=== PATIENT | female | born 1940 | race American Indian/Alaskan Native ===

== ENCOUNTER 2016-12-03 13:26 | Outpatient (CLI) | payer MEDICARE ==
--- NOTE | 2016-12-03 14:27 | Mammography Report ---
BILATERAL MAMMOGRAM with CAD: HISTORY:Cancer screening. Comparison study is dated November 05, 2015. FINDINGS: The breasts are almost entirely fat (<25% glandular). No mass, distortion, suspicious calcification, or skin change is seen. IMPRESSION: Negative mammogram. There is no mammographic evidence of malignancy. RECOMMENDATION: Follow-up per ACS guidelines. BI-RADS CATEGORY: 1 = Negative ACR BI-RADS MAMMOGRAPHIC CODES: 0 = Needs additional imaging evaluation; 1 = Negative; 2 = Benign; 3 = Probably benign; 4 = Suspicious; 5 = Malignant; 6 = Known biopsy-proven malignancy COMMENT: 1. Dense breast tissue, i.e., adenosis, fibrocystic changes, etc., may obscure an underlying neoplasm. 2. Approximately 10% of cancers are not detected with mammography. 3. A negative mammography report should not delay biopsy if a clinically suspicious mass is present. COMMENT: Patient follow-up letters are generated in [employer].
== END 2016-12-03 13:27 | disposition home or self-care (01) ==
LOC: MAMMO 13:26
PROVIDERS: ATTEND Pediatrics
DX: Z12.31 Encounter for screening mammogram for malignant neoplasm of breast (principal)
CPT/HCPCS: 77067; G0202

== ENCOUNTER 2016-12-31 13:58 | Emergency (ER) | payer MEDICARE ==
[2016-12-31 14:45] LABS: Basophils % (Auto) 0.5 % (0.0-1.8); Eosinophils % (Auto) 1.4 % (0.0-4.3); Hematocrit 36.7 % (30.3-42.9); Hemoglobin 11.5 gm/dl (10.1-14.3); Mean Corpuscular HGB Conc 32 % (30-34); Mean Corpuscular Volume 82 fl (79-97); Platelet Count 175 K/mm3 (140-440); Red Blood Count 4.46 M/mm3 (3.65-5.03); White Blood Count 5.8 K/mm3 (4.5-11.0)
[2016-12-31 14:51] LABS: Mean Corpuscular Hemoglobin 26 pg (28-32)
[2016-12-31 15:02] LABS: Anion Gap 21 mmol/L; BUN/Creatinine Ratio 17.14; Blood Urea Nitrogen 12 mg/dL (7-17); Calcium 9.4 mg/dL (8.4-10.2); Carbon Dioxide 23 mmol/L (22-30); Chloride 97.5 mmol/L (98-107); Glucose 85 mg/dL (65-100); Potassium 4.2 mmol/L (3.6-5.0); Sodium 137 mmol/L (137-145)
[2016-12-31] MEDS ORDERED: CATAPRES PO ONE (23:26)
--- NOTE | 2016-12-31 23:32 | Emergency Department Report ---
HPI - General Chief Complaint: High BP Time Seen by Provider: 12/31/16 23:13 - HPI HPI: Room 8 The patient is a 76-year-old female presenting with a chief complaint of hypertension. The patient states she had an appointment with her urologist 2 days ago and was noted that her blood pressure was elevated. The patient was instructed to take her blood pressure medication as prescribed. The following day the patient went to a children's school for an award show in the school nurse checked her blood pressure again felt the patient be hypertensive with systolic blood pressure in the 200s. The patient once the [employer] today and checked her blood pressure had an automated machine was found to have a systolic blood pressure of 209. Patient admits to slight dizziness since yesterday. Patient denies headache nausea or vomiting. The patient stay she's been compliant with her blood pressure medication for the past 10 years Location: Head, see above Duration: 2 days Quality: Dizziness Severity: Slight Modifying factors: [see above] Context: [see above] Mode of transportation: Unknown ED Past Medical Hx - Past Medical History Previous Medical History?: Yes Hx Hypertension: Yes Additional medical history: HIGH CHOLESTEROL - Surgical History Past Surgical History?: Yes Additional Surgical History: CAROTID ARTERY SURGERY. Right knee replacement - Family History Family history: no significant - Social History Smoking Status: Former Smoker (none 5 years) Substance Use Type: None - Medications Home Medications: Home Medications Medication Instructions Recorded Confirmed Last Taken Type Alendronate Sodium [Alendronate 70 mg PO QWEEK 04/10/15 04/10/15 Unknown History Sodium] Folic Acid [Folic Acid] 1 tab PO DAILY 04/10/15 04/10/15 Unknown History Lisinopril/Hydrochlorothiazide 1 tab PO DAILY 04/10/15 04/10/15 Unknown History [Lisinopril-Hctz 20-12.5 mg Tab] Prednisone [Prednisone] 0.5 tab PO DAILY 04/10/15 04/10/15 Unknown History Simvastatin [Simvastatin] 40 mg PO DAILY 04/10/15 04/10/15 Unknown History Aspirin [Aspirin BABY CHEW TAB] 81 mg PO QDAY #30 tab.chew 04/11/15 Unknown Rx amLODIPine [Norvasc] 5 mg PO DAILY #90 tab 12/31/16 Unknown Rx ED Review of Systems ROS: Stated complaint: ELEVATED BP Other details as noted in HPI Comment: All other systems reviewed and negative Constitutional: denies: chills, fever Eyes: denies: eye pain, eye discharge, vision change ENT: denies: ear pain, throat pain Respiratory: denies: cough, shortness of breath, wheezing Cardiovascular: denies: chest pain, palpitations Endocrine: no symptoms reported Gastrointestinal: denies: abdominal pain, nausea, diarrhea Genitourinary: denies: urgency, dysuria, discharge Musculoskeletal: denies: back pain, joint swelling, arthralgia Skin: denies: rash, lesions Neurological: other (dizziness). denies: headache Psychiatric: denies: anxiety, depression Hematological/Lymphatic: denies: easy bleeding, easy bruising Physical Exam - Physical Exam Vital Signs: Vital Signs 12/31/16 12/31/16 14:11 23:18 Temperature 98.6 F 98.2 F Pulse Rate 67 69 Respiratory 16 16 Rate Blood Pressure 219/87 Blood Pressure 211/77 [Left] O2 Sat by Pulse 100 97 Oximetry Physical Exam: GENERAL: The patient is well-developed well-nourished female lying on stretcher not appearing to be in acute distress. [] HEENT: Normocephalic. Atraumatic. Extraocular motions are intact. Patient has moist mucous membranes. NECK: Supple. Trachea midline CHEST/LUNGS: Clear to auscultation. There is no respiratory distress noted. HEART/CARDIOVASCULAR: Regular. There is no tachycardia. There is no gallop rub or murmur. ABDOMEN: Abdomen is soft, nontender. Patient has normal bowel sounds. There is no abdominal distention. SKIN: There is no rash. There is no edema. There is no diaphoresis. NEURO: The patient is awake, alert, and oriented. The patient is cooperative. The patient has no focal neurologic deficits. The patient has normal speech. Cranial nerves II through XII grossly intact, no drift MUSCULOSKELETAL: There is no evidence of acute injury. ED Course Vital Signs 12/31/16 12/31/16 14:11 23:18 Temperature 98.6 F 98.2 F Pulse Rate 67 69 Respiratory 16 16 Rate Blood Pressure 219/87 Blood Pressure 211/77 [Left] O2 Sat by Pulse 100 97 Oximetry - Reevaluation(s) Reevaluation #1: 01/01/17 01:23 BP 136/59 ED Medical Decision Making - Lab Data Result diagrams: 12/31/16 14:24 12/31/16 14:24 Laboratory Tests 12/31/16 12/31/16 12/31/16 14:24 14:24 16:37 WBC 5.8 RBC 4.46 Hgb 11.5 Hct 36.7 MCV 82 MCH 26 L MCHC 32 RDW 16.0 H Plt Count 175 Lymph % (Auto) 21.0 [place] % (Auto) 9.9 H Eos % (Auto) 1.4 Baso % (Auto) 0.5 Lymph # 1.2 [place] # 0.6 Eos # 0.1 Baso # 0.0 Seg Neutrophils % 67.2 Seg Neutrophils # 3.9 Sodium 137 Potassium 4.2 Chloride 97.5 L Carbon Dioxide 23 Anion Gap 21 BUN 12 Creatinine 0.7 Estimated GFR > 60 BUN/Creatinine Ratio 17.14 Glucose 85 Calcium 9.4 Troponin T < 0.010 < 0.010 12/31/16 19:42 WBC RBC Hgb Hct MCV MCH MCHC RDW Plt Count Lymph % (Auto) [place] % (Auto) Eos % (Auto) Baso % (Auto) Lymph # [place] # Eos # Baso # Seg Neutrophils % Seg Neutrophils # Sodium Potassium Chloride Carbon Dioxide Anion Gap BUN Creatinine Estimated GFR BUN/Creatinine Ratio Glucose Calcium Troponin T < 0.010 - EKG Data -: EKG Interpreted by Me EKG shows normal: sinus rhythm Rate: normal - EKG Data When compared to previous EKG there are: previous EKG unavailable Interpretation: other (no ischemic changes seen) - Radiology Data Radiology results: report reviewed (CT head), image reviewed (CT head) CT head (read by radiologist)-there is no evidence of acute intracranial process - Differential Diagnosis hypertensive urgency, ICH, vertigo Critical care attestation.: If time is entered above; I have spent that time in minutes in the direct care of this critically ill patient, excluding procedure time. ED Disposition Clinical Impression: Hypertension, Dizziness Disposition: DISCHARGED TO HOME OR SELFCARE Is pt being admited?: No Does the pt Need Aspirin: No Condition: Stable Instructions: Hypertension (ED) Additional Instructions: Return to the emergency department immediately should you develop worsening symptoms, fever, inability to tolerate food or liquid or any other concerns. Prescriptions: amLODIPine [Norvasc] 5 mg PO DAILY #90 tab Referrals: ALLAN GASPAR MD [Primary Care Provider] - HEATHER (Follow-up with your primary physician as soon as possible for further management of your blood pressure) Time of Disposition: 01:24
--- NOTE | 2017-01-01 00:22 | Cat Scan Report ---
FINAL REPORT PROCEDURE: CT HEAD/BRAIN WO CON TECHNIQUE: Computerized tomography of the head was performed without contrast material. HISTORY: hypertension, dizziness COMPARISON: No prior studies are available for comparison. FINDINGS: Skull and scalp: Normal. Paranasal sinuses: Normal. Ventricles and subarachnoid spaces: Normal. Cerebrum: No evidence of hemorrhage, acute infarction or mass . Cerebellum and brainstem: No evidence of hemorrhage, acute infarction or mass. Vasculature: Normal. Comments: None. IMPRESSION: There is no evidence of an acute intracranial process
[2017-01-01 01:59] VITALS: BP 109/54
== END 2017-01-01 01:58 | disposition home or self-care (01) ==
LOC: ED 13:58
DX: I10 Essential (primary) hypertension (principal); R42 Dizziness and giddiness; E78.00 Pure hypercholesterolemia, unspecified; Z87.891 Personal history of nicotine dependence
CPT/HCPCS: 36415; 70450; 80048; 84484; 85025; 93005; 93010